=== PATIENT | male | born 1980 | race African-American/Black ===

== ENCOUNTER 2019-10-14 20:15 | Inpatient (IN) | payer OTHER ==
[2019-10-14 22:22] VITALS: BMI 29.5
--- NOTE | 2019-10-14 23:31 | HP ---
CIWA Score Nausea/Vomitin Muscle Tremors: 3 Anxiety: 4-Mod. Anxious/Guarded Agitation: 3 Paroxysmal Sweats: 3 Orientation: 0-Oriented Tacttile Disturbances: 0-None Auditory Disturbances: 0-None Visual Disturbances: 0-None Headache: 0-None Present CIWA-Ar Total Score: 15 - Admission Criteria OASAS Guidelines: Admission for Medically Managed Detox: Requires at least one of the followin. CIWA greater than 12 2. Seizures within the past 24 hours 3. Delirium tremens within the past 24 hours 4. Hallucinations within the past 24 hours 5. Acute intervention needed for co occurring medical disorder 6. Acute intervention needed for co occurring psychiatric disorder 7. Severe withdrawal that cannot be handled at a lower level of care (continued vomiting, continued diarrhea, abnormal vital signs) requiring intravenous medication and/or fluids 8. Admitting History and Physical - Smoking History Smoking history: Current every day smoker Have you smoked in the past 12 months: Yes Aproximately how many cigarettes per day: 10 - Alcohol/Substance Use Hx Alcohol Use: Yes Admission ROS [facility] Chief Complaint: Alcohol withdrawal symptoms Allergies/Adverse Reactions: Allergies Allergy/AdvReac Type Severity Reaction Status Date / Time Pork/Porcine Containing AdvReac Severe Vomiting Verified 10/14/19 22:15 Products NKDA Allergy Uncoded 10/14/19 22:15 History of Present Illness: 39 years old male with a long history of alcohol dependence is seeking admission to detox. His last admission was for the period 01/11/2016 - 01/15/2016 and patient reports that [facility] and he started drinking as soon as he was released. He reports insignificant period of sobriety and that he drinks 4 pints of Candida daily. He denies medical history, psych. history and suicidal ideation at this time. 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 Exam Limitations: No Limitations - Ebola screening Have you traveled outside of the country in the last 21 days: No Have you had contact with anyone from an Ebola affected area: No Have you been sick,other than usual withdrawal symptoms: No Do you have a fever: No - Review of Systems Constitutional: Chills, Malaise, Night Sweats EENT: reports: No Symptoms Reported Respiratory: reports: No Symptoms reported Cardiac: reports: No Symptoms Reported GI: reports: Nausea, Poor Fluid Intake, Abdominal cramping : reports: No Symptoms Reported Musculoskeletal: reports: No Symptoms Reported Neuro: reports: Tremors Endocrine: reports: No Symptoms Reported Hematology: reports: No Symptoms Reported Psychiatric: reports: Mood/Affect Appropiate, Orientated x3 Other Systems: Reviewed and Negative Patient History - Patient Medical History Hx Anemia: No Hx Asthma: No Hx Chronic Obstructive Pulmonary Disease (COPD): No Hx Cancer: No Hx Cardiac Disorders: No Hx Congestive Heart Failure: No Hx Hypertension: No Hx Hypercholesterolemia: No Hx Pacemaker: No HX Cerebrovascular Accident: No Hx Seizures: No Hx Dementia: No Hx Diabetes: No Hx Gastrointestinal Disorders: No Hx Liver Disease: No Hx Genitourinary Disorders: No Hx Sexually Transmitted Disorders: No Hx Renal Disease (ESRD): No Hx Thyroid Disease: No Hx Human Immunodeficiency Virus (HIV): No (Negative 2018) Hx Hepatitis C: No Hx Depression: No Hx Suicide Attempt: No (Denies suicidal ideation at this time.) Hx Bipolar Disorder: No Hx Schizophrenia: No - Patient Surgical History Past Surgical History: No Hx Neurologic Surgery: No Hx Cataract Extraction: No Hx Cardiac Surgery: No Hx Lung Surgery: No Hx Breast Biopsy: No Hx Abdominal Surgery: No Hx Appendectomy: No Hx Cholecystectomy: No Hx Genitourinary Surgery: No Hx Orthopedic Surgery: No Other Surgical History: sutured wound, head, 12/15/2015/sutures removed 12/26/2015 Anesthesia Reaction: No - PPD History Previous Implant?: Yes Documented Results: Negative w/proof Implanted On Prior [facility] Admission?: Yes Date: 10/14/15 Results: 0 mm PPD to be Administered?: Yes - Reproductive History Patient is a Female of Child Bearing Age (11 -55 yrs old): No (male) - Smoking Cessation Smoking history: Current every day smoker Have you smoked in the past 12 months: Yes Aproximately how many cigarettes per day: 10 Hx Chewing Tobacco Use: No Initiated information on smoking cessation: Yes 'Breaking Loose' booklet given: 10/14/19 - Substance & Tx. History Hx Alcohol Use: Yes Hx Substance Use: Yes Substance Use Type: Alcohol, Marijuana Hx Substance Use Treatment: Yes ([facility]) - Substances abused Alcohol Substance route: Oral Frequency: Daily Amount used: LIQUOR (CANDIDA) - 4 PINTS Age of first use: 19 Date of last use: 10/14/19 Marijuana/Hashish Substance route: Smoking Frequency: Daily Amount used: 4 BLUNTS DAILY Age of first use: 11 Date of last use: 10/14/19 Admission Physical Exam [facility] - Vital Signs Vital Signs: Vital Signs - 24 hr 10/14/19 22:16 Temperature 97.6 F Pulse Rate 83 Respiratory 12 Rate Blood Pressure 110/70 - Physical General Appearance: Yes: Moderate Distress, Tremorous, Anxious HEENTM: Yes: Within Normal Limits Respiratory: Yes: Lungs Clear, Normal Breath Sounds, No Respiratory Distress Neck: Yes: Within Normal Limits Breast: Yes: Breast Exam Deferred Abdominal: Yes: Normal Bowel Sounds, Soft Genitourinary: Yes: Within Normal Limits Back: Yes: Normal Inspection Musculoskeletal: Yes: Within Normal Limits Extremities: Yes: Tremors Neurological: Yes: Within Normal Limits, Alert, Normal Mood/Affect Integumentary: Yes: Warm Lymphatic: Yes: Within Normal Limits - Diagnostic (1) Alcohol dependence with uncomplicated withdrawal Current Visit: Yes Status: Acute (2) Marijuana dependence Status: Chronic (3) Nicotine dependence Current Visit: Yes Status: Chronic Qualifiers: Nicotine product type: cigarettes Substance use status: uncomplicated Qualified Code(s): F17.210 - Nicotine dependence, cigarettes, uncomplicated Cleared for Admission [facility] - Detox or Rehab [facility] Level of Care: Medically Managed Detox Regimen/Protocol: Librium Claeared for Rehab Admission: No Breathalyzer - Breathalyzer Breathalyzer: 0.231 Urine Drug Screen - Test Device Lot number: [id number] Expiration date: 09/27/21 - Results Drug screen NEGATIVE: No Urine drug screen results: THC-Marijuana Inpatient Rehab Admission - Rehab Decision to Admit Inpatient rehab admission?: No
[2019-10-14] MEDS ORDERED: MENTHOL/PHENOL 1 EACH UD MM PRN (23:41)
[2019-10-14] MEDS ORDERED: BISMUTH SUBSALICYLATE 524 MG/30 ML UD PO PRN (23:41)
[2019-10-14] MEDS ORDERED: hydrOXYzine PAMOATE 25 MG CAPSULE (FP) PO PRN (23:41)
[2019-10-14] MEDS ORDERED: chlordiazePOXIDE HCL 25 MG CAPSULE PO PRN (23:41)
[2019-10-14] MEDS ORDERED: MAG HYDROX/AL HYDROX/SIMETH 30 ML UNIT-DOSE CUP PO PRN (23:41)
[2019-10-14] MEDS ORDERED: METHOCARBAMOL 500 MG TABLET PO PRN (23:41)
[2019-10-14] MEDS ORDERED: MAGNESIUM HYDROX 2400MG/30ML ORAL SUSPENSION 30 ML CUP PO PRN (23:41)
[2019-10-14] MEDS ORDERED: MAGNESIUM CITRATE 300 ML BOTTLE PO PRN (23:41)
[2019-10-14] MEDS ORDERED: IBUPROFEN 400 MG TABLET (FP) PO PRN (23:41)
[2019-10-14] MEDS ORDERED: NICOTINE POLACRILEX 2 MG GUM BUC PRN (23:41)
[2019-10-14] MEDS ORDERED: ACETAMINOPHEN 325 MG TABLET (FP) PO PRN ×2 (23:41)
[2019-10-14] MEDS ORDERED: ONDANSETRON *ODT* 4 MG TABLET SL ONE (23:50)
[2019-10-15] MEDS: chlordiazePOXIDE HCL 25 MG CAPSULE PO SCH ×3 (00:49→10:44)
[2019-10-15 06:53] VITALS: TEMP 97.3
[2019-10-15] MEDS ORDERED: PRENATAL VITAMINS W/ FOLIC ACID TABLET (FP) PO SCH (10:00)
[2019-10-15] MEDS ORDERED: NICOTINE 14 MG/24 HOURS TOPICAL PATCH TD SCH (10:00)
[2019-10-15 10:05] VITALS: BP 130/74; PULSE 76
[2019-10-15 10:24] LABS: HEMATOCRIT 36.7 % (35.4-49); HEMOGLOBIN 13.1 GM/dL (11.7-16.9); MCH 34.1 pg (25.7-33.7); MCHC 35.7 g/dl (32.0-35.9); MEAN CELL VOLUME 95.5 fl (80-96); MEAN PLT VOLUME 7.3 fl (7.5-11.1); PLATELET COUNT 235 K/MM3 (134-434); RBC 3.84 M/mm3 (4.00-5.60); RDW 12.8 % (11.9-15.9); WHITE BLOOD COUNT 4.3 K/mm3 (4.0-10.0)
[2019-10-15 10:26] LABS: ALBUMIN 3.9 g/dl (3.4-5.0); BILIRUBIN,TOTAL 0.6 mg/dL (0.2-1); BLOOD UREA NITROGEN 7.8 mg/dL (7-18); CALCIUM 8.6 mg/dL (8.5-10.1); CREATININE 0.8 mg/dL (0.55-1.3); TOT PROT 7.6 g/dl (6.4-8.2)
--- NOTE | 2019-10-15 10:37 | EKG ---
Test Reason : Blood Pressure : / mmHG Vent. Rate : 077 BPM Atrial Rate : 077 BPM P-R Int : 188 ms QRS Dur : 106 ms QT Int : 380 ms P-R-T Axes : 078 069 015 degrees QTc Int : 430 ms NORMAL SINUS RHYTHM NONSPECIFIC INTRAVENTRICULAR CONDUCTION DEFECT NO PREVIOUS ECGS AVAILABLE Confirmed by JOSUE GIBSON MD ([id number]) on 10/15/2019 10:37:08 AM Referred By: Naveen Lay Confirmed By:JOSUE GIBSON MD
--- NOTE | 2019-10-15 11:25 | PN ---
S CIWA - CIWA Score Nausea/Vomitin-No Nausea/No Vomiting Muscle Tremors: 2 Anxiety: 3 Agitation: 0-Normal Activity Paroxysmal Sweats: 3 Orientation: 0-Oriented Tacttile Disturbances: 0-None Auditory Disturbances: 0-None Visual Disturbances: 0-None Headache: 2-Mild CIWA-Ar Total Score: 10 [facility] Progress Note (SOAP) Subjective: c/o sweats, anxiety, shakes, and headache. Objective: 10/15/19 11:24 Vital Signs 10/15/19 10/15/19 06:51 09:04 Temperature 97.3 F L 97.3 F L Pulse Rate 75 76 Respiratory 18 20 Rate Blood Pressure 106/64 130/74 O2 Sat by Pulse 96 Oximetry (%) Laboratory Last Values WBC 4.3 K/mm3 (4.0-10.0) 10/15/19 07:50 RBC 3.84 M/mm3 (4.00-5.60) L 10/15/19 07:50 Hgb 13.1 GM/dL (11.7-16.9) 10/15/19 07:50 Hct 36.7 % (35.4-49) 10/15/19 07:50 MCV 95.5 fl (80-96) 10/15/19 07:50 MCH 34.1 pg (25.7-33.7) H 10/15/19 07:50 MCHC 35.7 g/dl (32.0-35.9) 10/15/19 07:50 RDW 12.8 % (11.9-15.9) 10/15/19 07:50 Plt Count 235 K/MM3 (134-434) 10/15/19 07:50 MPV 7.3 fl (7.5-11.1) L 10/15/19 07:50 Sodium 142 mmol/L (136-145) 10/15/19 07:50 Potassium 4.0 mmol/L (3.5-5.1) 10/15/19 07:50 Chloride 106 mmol/L (98-107) 10/15/19 07:50 Carbon Dioxide 25 mmol/L (21-32) 10/15/19 07:50 Anion Gap 10 MMOL/L (8-16) 10/15/19 07:50 BUN 7.8 mg/dL (7-18) 10/15/19 07:50 Creatinine 0.8 mg/dL (0.55-1.3) 10/15/19 07:50 Est GFR (CKD-EPI)AfAm 129.51 10/15/19 07:50 Est GFR (CKD-EPI)NonAf 111.74 10/15/19 07:50 Random Glucose 74 mg/dL (74-106) 10/15/19 07:50 Calcium 8.6 mg/dL (8.5-10.1) 10/15/19 07:50 Total Bilirubin 0.6 mg/dL (0.2-1) 10/15/19 07:50 AST 60 U/L (15-37) H 10/15/19 07:50 ALT 35 U/L (13-61) 10/15/19 07:50 Alkaline Phosphatase 76 U/L (45-117) 10/15/19 07:50 Total Protein 7.6 g/dl (6.4-8.2) 10/15/19 07:50 Albumin 3.9 g/dl (3.4-5.0) 10/15/19 07:50 Syphilis Serology Non-reactive (NONREACTIVE) 10/15/19 07:50 Labs noted. Assessment: 10/15/19 11:24 AOX3, in no acute respiratory distress. Full ROM, ambulating in the unit. Withdrawal symptoms. Plan: continue detox.
--- NOTE | 2019-10-15 12:46 | DS ---
[facility] Detox Discharge Summary Admission Date: 10/14/19 Discharge Date: 10/15/19 (Pt left AMA) - History Present History: Alcohol Dependence, Cannabis Dependence Additional Comments: As per H&P: "39 years old male with a long history of alcohol dependence is seeking admission to detox. His last admission was for the period 01/11/2016 - 01/15/2016 and patient reports that [facility] and he started drinking as soon as he was released. He reports insignificant period of sobriety and that he drinks 4 pints of Candida daily. He denies medical history, psych. history and suicidal ideation at this time. 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 Pt left AMA. Pt did not complete the detox protocol. Pt states, my daughter is admitted to the hospital, i have to go". An attempt to let pt stay and complete the detox protocol failed. Pt is encouraged to follow-up with an outpatient CD program and also to follow-up with his pmd which he verbalized understanding. Pt is AOX3, in no acute respiratory distress, Full ROM, and ambulatory. Pertinent Past History: h/o alcohol and cannabis use disorder. - Physical Exam Results Vital Signs: Vital Signs Temperature 97.3 F L 10/15/19 09:04 Pulse Rate 76 10/15/19 09:04 Respiratory Rate 20 10/15/19 09:04 Blood Pressure 130/74 10/15/19 09:04 O2 Sat by Pulse Oximetry (%) 96 10/15/19 06:51 Vital Signs 10/15/19 10/15/19 06:51 09:04 Temperature 97.3 F L 97.3 F L Pulse Rate 75 76 Respiratory 18 20 Rate Blood Pressure 106/64 130/74 O2 Sat by Pulse 96 Oximetry (%) Laboratory Last Values WBC 4.3 K/mm3 (4.0-10.0) 10/15/19 07:50 RBC 3.84 M/mm3 (4.00-5.60) L 10/15/19 07:50 Hgb 13.1 GM/dL (11.7-16.9) 10/15/19 07:50 Hct 36.7 % (35.4-49) 10/15/19 07:50 MCV 95.5 fl (80-96) 10/15/19 07:50 MCH 34.1 pg (25.7-33.7) H 10/15/19 07:50 MCHC 35.7 g/dl (32.0-35.9) 10/15/19 07:50 RDW 12.8 % (11.9-15.9) 10/15/19 07:50 Plt Count 235 K/MM3 (134-434) 10/15/19 07:50 MPV 7.3 fl (7.5-11.1) L 10/15/19 07:50 Sodium 142 mmol/L (136-145) 10/15/19 07:50 Potassium 4.0 mmol/L (3.5-5.1) 10/15/19 07:50 Chloride 106 mmol/L (98-107) 10/15/19 07:50 Carbon Dioxide 25 mmol/L (21-32) 10/15/19 07:50 Anion Gap 10 MMOL/L (8-16) 10/15/19 07:50 BUN 7.8 mg/dL (7-18) 10/15/19 07:50 Creatinine 0.8 mg/dL (0.55-1.3) 10/15/19 07:50 Est GFR (CKD-EPI)AfAm 129.51 10/15/19 07:50 Est GFR (CKD-EPI)NonAf 111.74 10/15/19 07:50 Random Glucose 74 mg/dL (74-106) 10/15/19 07:50 Calcium 8.6 mg/dL (8.5-10.1) 10/15/19 07:50 Total Bilirubin 0.6 mg/dL (0.2-1) 10/15/19 07:50 AST 60 U/L (15-37) H 10/15/19 07:50 ALT 35 U/L (13-61) 10/15/19 07:50 Alkaline Phosphatase 76 U/L (45-117) 10/15/19 07:50 Total Protein 7.6 g/dl (6.4-8.2) 10/15/19 07:50 Albumin 3.9 g/dl (3.4-5.0) 10/15/19 07:50 Syphilis Serology Non-reactive (NONREACTIVE) 10/15/19 07:50 Labs noted. Pertinent Admission Physical Exam Findings: withdrawal symptoms. - Treatment Hospital Course: Detox Protocol Followed - Medication Discharge Medications: Ambulatory Orders NK [No Known Home Medication] 11/04/15 - Diagnosis (1) Alcohol dependence with uncomplicated withdrawal Current Visit: Yes Status: Acute (2) Nicotine dependence Current Visit: Yes Status: Chronic Qualifiers: Nicotine product type: cigarettes Substance use status: uncomplicated Qualified Code(s): F17.210 - Nicotine dependence, cigarettes, uncomplicated (3) Marijuana dependence Current Visit: No Status: Chronic - AMA Did Patient Leave Against Medical Advice: Yes
[2019-10-15] MEDS ORDERED: THIAMINE HCL 100 MG TABLET (FP) PO SCH (22:00)
[2019-10-15] MEDS ORDERED: MELATONIN 5 MG TABLETS PO SCH (22:00)
[2019-10-16] MEDS ORDERED: chlordiazePOXIDE HCL 25 MG CAPSULE PO SCH (05:00)
[2019-10-17] MEDS ORDERED: chlordiazePOXIDE HCL 10 MG CAPSULE PO PRN
[2019-10-17] MEDS ORDERED: chlordiazePOXIDE HCL 10 MG CAPSULE PO SCH (05:00)
[2019-10-18] MEDS ORDERED: chlordiazePOXIDE HCL 10 MG CAPSULE PO SCH (05:00)
[2019-10-19] MEDS ORDERED: chlordiazePOXIDE HCL 10 MG CAPSULE PO ONE (05:00)
--- NOTE | 2019-10-19 21:17 | HP ---
CIWA Score Nausea/Vomitin-No Nausea/No Vomiting Muscle Tremors: 2 Anxiety: 3 Agitation: 0-Normal Activity Paroxysmal Sweats: 3 Orientation: 0-Oriented Tacttile Disturbances: 0-None Auditory Disturbances: 0-None Visual Disturbances: 0-None Headache: 2-Mild CIWA-Ar Total Score: 10 - Admission Criteria OASAS Guidelines: Admission for Medically Managed Detox: Requires at least one of the followin. CIWA greater than 12 2. Seizures within the past 24 hours 3. Delirium tremens within the past 24 hours 4. Hallucinations within the past 24 hours 5. Acute intervention needed for co occurring medical disorder 6. Acute intervention needed for co occurring psychiatric disorder 7. Severe withdrawal that cannot be handled at a lower level of care (continued vomiting, continued diarrhea, abnormal vital signs) requiring intravenous medication and/or fluids 8. Admitting History and Physical - Smoking History Smoking history: Current every day smoker Have you smoked in the past 12 months: Yes Aproximately how many cigarettes per day: 10 - Alcohol/Substance Use Hx Alcohol Use: Yes Admission [facility] Allergies/Adverse Reactions: Allergies Allergy/AdvReac Type Severity Reaction Status Date / Time Pork/Porcine Containing AdvReac Severe Vomiting Verified 10/14/19 22:15 Products NKDA Allergy Uncoded 10/14/19 22:15 History of Present Illness: 39 years old male with a long history of alcohol dependence is seeking admission to detox. His last admission was for the period 01/11/2016 - 01/15/2016 and patient reports that he went to assisted post detox and he started drinking as soon as he was released. He reports insignificant period of sobriety and that he drinks 4 pints of Candida daily. He denies medical history, psych. history and suicidal ideation at this time. 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 - Ebola screening Have you traveled outside of the country in the last 21 days: No Have you had contact with anyone from an Ebola affected area: No Have you been sick,other than usual withdrawal symptoms: No Do you have a fever: No Patient History - Patient Medical History Hx Anemia: No Hx Asthma: No Hx Chronic Obstructive Pulmonary Disease (COPD): No Hx Cancer: No Hx Cardiac Disorders: No Hx Congestive Heart Failure: No Hx Hypertension: No Hx Hypercholesterolemia: No Hx Pacemaker: No HX Cerebrovascular Accident: No Hx Seizures: No Hx Dementia: No Hx Diabetes: No Hx Gastrointestinal Disorders: No Hx Liver Disease: No Hx Genitourinary Disorders: No Hx Sexually Transmitted Disorders: No Hx Renal Disease (ESRD): No Hx Thyroid Disease: No Hx Human Immunodeficiency Virus (HIV): No (Negative 2017) Hx Hepatitis C: No Hx Depression: No Hx Suicide Attempt: No (Denies suicidal ideation at this time.) Hx Bipolar Disorder: No Hx Schizophrenia: No - Patient Surgical History Past Surgical History: No Hx Neurologic Surgery: No Hx Cataract Extraction: No Hx Cardiac Surgery: No Hx Lung Surgery: No Hx Breast Surgery: No Hx Breast Biopsy: No Hx Abdominal Surgery: No Hx Appendectomy: No Hx Cholecystectomy: No Hx Genitourinary Surgery: No Hx Section: No Hx Orthopedic Surgery: No Other Surgical History: sutured wound, head, 12/15/2015/sutures removed 12/26/2015 Anesthesia Reaction: No - PPD History Previous Implant?: Yes Documented Results: Negative w/proof Implanted On Prior [facility] Admission?: Yes Date: 10/17/15 Results: 0 mm - Smoking Cessation Smoking history: Current every day smoker Have you smoked in the past 12 months: Yes Aproximately how many cigarettes per day: 10 Cigars Per Day: 0 Hx Chewing Tobacco Use: No Initiated information on smoking cessation: Yes - Substances abused Alcohol Substance route: Oral Frequency: Daily Amount used: LIQUOR (CANDIDA) - 4 PINTS Age of first use: 19 Date of last use: 10/14/19 Marijuana/Hashish Substance route: Smoking Frequency: Daily Amount used: 4 BLUNTS DAILY Age of first use: 11 Date of last use: 10/14/19 Admission Physical Exam [facility] - Diagnostic (1) Alcohol dependence with uncomplicated withdrawal Status: Acute (2) Marijuana dependence Status: Chronic (3) Nicotine dependence Status: Chronic Qualifiers: Nicotine product type: cigarettes Substance use status: uncomplicated Qualified Code(s): F17.210 - Nicotine dependence, cigarettes, uncomplicated Breathalyzer - Breathalyzer Breathalyzer: 0.231 Urine Drug Screen - Test Device Lot number: [id number] Expiration date: 09/27/21 - Results Drug screen NEGATIVE: No Urine drug screen results: THC-Marijuana
== END 2019-10-15 13:18 | disposition left against medical advice (07) | DRG 770 ==
LOC: YASAS 20:15 → Y3N 22:37
PROVIDERS: ADMIT Allergy & Immunology; ATTEND Allergy & Immunology
PROC: HZ2ZZZZ Detoxification Services for Substance Abuse Treatment (ICD-10-PCS; principal; 2019-10-14)
DX: F10.230 Alcohol dependence with withdrawal, uncomplicated (principal); F12.20 Cannabis dependence, uncomplicated; F17.210 Nicotine dependence, cigarettes, uncomplicated; Z91.018 Allergy to other foods
CPT/HCPCS: 36415; 80053; 85027; 86780; 93005; 93010; Q0162; U0003

== ENCOUNTER 2019-11-21 17:14 | Inpatient (IN) | payer OTHER ==
--- NOTE | 2019-11-21 17:35 | BHS.RME ---
Substance Use & Tx History - Substance Use History Alcohol Substance amount: 1 litre of don/6 packs of 12 ozs of beer Frequency of use: Daily Substance route: Oral Date of Last Use: 11/21/19 Marijuana/Hashish Substance amount: 100$ of marijuana Frequency of use: Daily Substance route: Smoking Date of Last Use: 11/21/19 - Last Treatment Date of last treatment: [facility] 10/19/19 to 10/22/19 Where was last treatment: Detox Physical/Psych/Mental Status - Behavior Eye Contact: Normal - Cooperativeness Cooperativeness: Cooperative - Thinking Thought Processes: Logical Thought content: Future oriented - Physical Health Problems Is patient presently having any pain?: No Does patient presently have any injuries (include location): No Does patient currently have a fever: No CIWA Nausea/Vomitin Muscle Tremors: 2 Anxiety: 3 Agitation: 3 Paroxysmal Sweats: 1-Minimal Palms Moist Orientation: 0-Oriented Tacttile Disturbances: 1-Very Mild Itch/Numbness Auditory Disturbances: 0-None Visual Disturbances: 0-None Headache: 2-Mild CIWA-Ar Total Score: 15
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
[2019-11-21] MEDS ORDERED: IBUPROFEN 400 MG TABLET (FP) PO PRN (17:57)
[2019-11-21] MEDS ORDERED: chlordiazePOXIDE HCL 25 MG CAPSULE PO PRN (17:57)
[2019-11-21] MEDS ORDERED: BISMUTH SUBSALICYLATE 524 MG/30 ML UD PO PRN (17:57)
[2019-11-21] MEDS ORDERED: NICOTINE POLACRILEX 2 MG GUM BUC PRN (17:57)
[2019-11-21] MEDS ORDERED: METHOCARBAMOL 500 MG TABLET PO PRN (17:57)
[2019-11-21] MEDS ORDERED: MAGNESIUM HYDROX 2400MG/30ML ORAL SUSPENSION 30 ML CUP PO PRN (17:57)
[2019-11-21] MEDS ORDERED: ACETAMINOPHEN 325 MG TABLET (FP) PO PRN ×2 (17:57)
[2019-11-21] MEDS ORDERED: ONDANSETRON *ODT* 4 MG TABLET SL PRN (17:57)
[2019-11-21] MEDS ORDERED: MENTHOL/PHENOL 1 EACH UD MM PRN (17:57)
[2019-11-21] MEDS ORDERED: MAG HYDROX/AL HYDROX/SIMETH 30 ML UNIT-DOSE CUP PO PRN (17:57)
[2019-11-21] MEDS ORDERED: MAGNESIUM CITRATE 300 ML BOTTLE PO PRN (17:57)
[2019-11-21 18:01] VITALS: BMI 31.4
[2019-11-21] MEDS: hydrOXYzine PAMOATE 25 MG CAPSULE (FP) PO SCH ×2 (18:55→22:34)
[2019-11-21] MEDS: NICOTINE 21 MG/24 HOURS TOPICAL PATCH TD SCH (18:56)
[2019-11-21] MEDS ORDERED: MELATONIN 5 MG TABLETS PO SCH (22:00)
[2019-11-21] MEDS ORDERED: THIAMINE HCL 100 MG TABLET (FP) PO SCH (22:00)
[2019-11-21] MEDS: chlordiazePOXIDE HCL 25 MG CAPSULE PO SCH (23:51)
[2019-11-22] MEDS: chlordiazePOXIDE HCL 25 MG CAPSULE PO SCH ×2 (05:26→10:25)
[2019-11-22] MEDS: hydrOXYzine PAMOATE 25 MG CAPSULE (FP) PO SCH ×2 (05:26→10:25)
[2019-11-22 09:02] VITALS: BP 125/83; PULSE 73; TEMP 97.4
[2019-11-22] MEDS ORDERED: PRENATAL VITAMINS W/ FOLIC ACID TABLET (FP) PO SCH (10:00)
[2019-11-22 10:19] LABS: HEMATOCRIT 37.3 % (35.4-49); MCH 32.9 pg (25.7-33.7); MCHC 34.9 g/dl (32.0-35.9); MEAN CELL VOLUME 94.4 fl (80-96); MEAN PLT VOLUME 7.4 fl (7.5-11.1); PLATELET COUNT 273 K/MM3 (134-434); RBC 3.95 M/mm3 (4.00-5.60); RDW 12.5 % (11.9-15.9)
[2019-11-22] MEDS: NICOTINE 21 MG/24 HOURS TOPICAL PATCH TD SCH (10:25)
[2019-11-22 10:30] LABS: ALBUMIN 3.7 g/dl (3.4-5.0); BILIRUBIN,TOTAL 0.4 mg/dL (0.2-1); BLOOD UREA NITROGEN 10.6 mg/dL (7-18); CREATININE 0.8 mg/dL (0.55-1.3); POTASSIUM 4.5 mmol/L (3.5-5.1); TOT PROT 7.3 g/dl (6.4-8.2)
--- NOTE | 2019-11-22 11:38 | DS ---
[facility] Detox Discharge Summary Admission Date: 11/21/19 Discharge Date: 11/22/19 - History Present History: Alcohol Dependence Additional Comments: 39 years old male was admitted on 11/21/19 for alcohol withdrawal sx management treated with librium detox regiment mr guevara insists to leave the detox today that he needs to go back to work around 1 pm mr guevara prefers to go to [facility] for out patient services for his alcohol abuse treatment mr guevara is alert oriented x 3 speech clearly coherently ambulating with steady gaits General Appearance: Yes: mild Distress, mild Tremorous, not Irritable, mild Anxious HEENTM: Yes: NORMAN, Pharynx Normal Respiratory: Yes: Lungs Clear, Normal Breath Sounds, No Respiratory Distress Neck: Yes: Within Normal Limits, Supple, Trachea in good position Breast: Yes: Within Normal Limits Cardiology: Yes: Within Normal Limits, Regular Rhythm, Regular Rate, S1, S2 Abdominal: Yes: Normal Bowel Sounds, Non Tender, Soft Genitourinary: Yes: Within Normal Limits Back: Yes: Muscle Spasm Musculoskeletal: Yes: Gait Steady, Back pain Extremities: Yes: Tremors Neurological: Yes: cath laboratory technician II-XII NML intact, Alert, Motor Strength 5/5 Integumentary: Yes: Dry Lymphatic: Yes: Within Normal Limits Pertinent Past History: time for discharge 56 minutes treatment team met with mr guevara to discuss the benefit of librium regiment completion mr guevara insists to leave the detox return to work today around 1 pm mr guevara states that he lives in [place] and prefers to go to [facility] but his friend wants him to come to detox - Physical Exam Results Vital Signs: Vital Signs Temperature 97.4 F L 11/22/19 09:01 Pulse Rate 73 11/22/19 09:01 Respiratory Rate 18 11/22/19 09:01 Blood Pressure 125/83 11/22/19 09:01 O2 Sat by Pulse Oximetry (%) 99 11/22/19 09:01 Pertinent Admission Physical Exam Findings: alcohol withdrawal Vital Signs - 24 hr 11/21/19 11/21/19 11/21/19 17:58 18:21 18:58 Temperature 97.0 F L 97.5 F L Pulse Rate 98 H 87 Respiratory 19 17 Rate Blood Pressure 139/95 125/79 O2 Sat by Pulse 98 Oximetry (%) 11/21/19 11/22/19 11/22/19 20:20 06:15 09:01 Temperature 97.6 F 98.1 F 97.4 F L Pulse Rate 60 84 73 Respiratory 17 18 18 Rate Blood Pressure 123/75 146/92 125/83 O2 Sat by Pulse 100 99 99 Oximetry (%) Laboratory Tests 11/22/19 11/22/19 07:10 07:10 WBC 5.0 RBC 3.95 L Hgb 13.0 Hct 37.3 MCV 94.4 MCH 32.9 MCHC 34.9 RDW 12.5 Plt Count 273 D MPV 7.4 L Sodium 140 Potassium 4.5 Chloride 106 Carbon Dioxide 27 Anion Gap 7 L BUN 10.6 Creatinine 0.8 Est GFR (CKD-EPI)AfAm 129.51 Est GFR (CKD-EPI)NonAf 111.74 Random Glucose 88 Calcium 9.0 Total Bilirubin 0.4 AST 38 H ALT 28 Alkaline Phosphatase 81 Total Protein 7.3 Albumin 3.7 covid pending - Treatment Hospital Course: Detox Protocol Followed, Detoxed Safely, Responded well, Discharged Condition Good, Rehab Referral Accepted Patient has Accepted a Rehab Referral to[facility] - Medication Discharge Medications: Ambulatory Orders NK [No Known Home Medication] 11/04/15 - Diagnosis (1) Substance induced mood disorder Current Visit: Yes Status: Suspected (2) Alcohol dependence with uncomplicated withdrawal Current Visit: Yes Status: Acute (3) Nicotine dependence Current Visit: Yes Status: Acute Qualifiers: Nicotine product type: cigarettes Substance use status: in withdrawal Qualified Code(s): F17.213 - Nicotine dependence, cigarettes, with withdrawal - AMA Did Patient Leave Against Medical Advice: Yes CIWA Score - CIWA Score Nausea/Vomitin-Mild Nausea/No Vomiting Muscle Tremors: 1-None Visible, but [place] Anxiety: 2 Agitation: 2 Paroxysmal Sweats: 1-Minimal Palms Moist Orientation: 0-Oriented Tacttile Disturbances: 1-Very Mild Itch/Numbness Auditory Disturbances: 0-None Visual Disturbances: 0-None Headache: 2-Mild CIWA-Ar Total Score: 10
[2019-11-23] MEDS ORDERED: chlordiazePOXIDE HCL 25 MG CAPSULE PO SCH (05:00)
[2019-11-24] MEDS ORDERED: chlordiazePOXIDE HCL 10 MG CAPSULE PO PRN
[2019-11-24] MEDS ORDERED: chlordiazePOXIDE HCL 10 MG CAPSULE PO SCH (05:00)
[2019-11-25] MEDS ORDERED: chlordiazePOXIDE HCL 10 MG CAPSULE PO SCH (05:00)
[2019-11-26] MEDS ORDERED: chlordiazePOXIDE HCL 10 MG CAPSULE PO ONE (05:00)
== END 2019-11-22 11:26 | disposition home or self-care (01) | DRG 775 ==
LOC: YASAS 17:14 → Y3N 18:05
PROVIDERS: ADMIT Allergy & Immunology; ATTEND Allergy & Immunology
PROC: HZ2ZZZZ Detoxification Services for Substance Abuse Treatment (ICD-10-PCS; principal; 2019-11-21)
DX: F10.230 Alcohol dependence with withdrawal, uncomplicated (principal); F10.220 Alcohol dependence with intoxication, uncomplicated; F12.20 Cannabis dependence, uncomplicated; F17.213 Nicotine dependence, cigarettes, with withdrawal; F19.24 Other psychoactive substance dependence with psychoactive substance-induced mood disorder; Z91.018 Allergy to other foods
CPT/HCPCS: 36415; 80053; 85027; 86780; U0003

== ENCOUNTER 2020-10-04 19:45 | Emergency (ER) | payer OTHER ==
[~2020-10-04 19:45] MED LIST: LIDOCAINE PATCH REMOVAL MC ONE
[2020-10-04 20:15] VITALS: BMI 30.4
[2020-10-04 20:16] VITALS: TEMP 98.2
[2020-10-04] MEDS ORDERED: ACETAMINOPHEN 1000 MG/100 ML VIAL (NON FORMULARY) IVPB ONE (21:43)
[2020-10-04] MEDS ORDERED: ACETAMINOPHEN INJECTION 100 ML IVPB ONE (21:53)
[2020-10-04 22:25] LABS: BASO % 1.3 % (0-2.0); EOS % 3.6 % (0-4.5); HEMATOCRIT 32.5 % (35.4-49); HEMOGLOBIN 11.6 GM/dL (11.7-16.9); LYMPH % 40.9 % (8-40); MCH 34.6 pg (25.7-33.7); MCHC 35.7 g/dl (32.0-35.9); MEAN PLT VOLUME 6.4 fl (7.5-11.1); MONO % 9.5 % (3.8-10.2); NEUT % 44.7 % (42.8-82.8); PLATELET COUNT 329 10^3/uL (134-434); RBC 3.35 M/mm3 (4.00-5.60); WHITE BLOOD COUNT 5.3 K/mm3 (4.0-10.0)
[2020-10-04] MEDS ORDERED: LIDOCAINE 5% TOPICAL PATCH TP ONE (22:29)
[2020-10-04] MEDS ORDERED: LIDOCAINE 5% TOPICAL PATCH ONE (22:34)
[2020-10-04 22:45] LABS: ALBUMIN 3.7 g/dl (3.4-5.0); BLOOD UREA NITROGEN 7.9 mg/dL (7-18); CALCIUM 8.4 mg/dL (8.5-10.1)
[2020-10-04 22:48] LABS: CREATININE 0.7 mg/dL (0.55-1.3)
[2020-10-04 22:50] LABS: BILIRUBIN,TOTAL 0.2 mg/dL (0.2-1)
[2020-10-05 01:42] VITALS: BP 116/82; PULSE 87
[2020-10-05] MEDS ORDERED: LIDOCAINE PATCH REMOVAL MC ONE (10:30)
== END 2020-10-05 01:43 | disposition home or self-care (01) ==
LOC: JER 19:45
PROC: 3E0333Z Introduction of Anti-inflammatory into Peripheral Vein, Percutaneous Approach (ICD-10-PCS; principal; 2020-10-04)
DX: S22.32XA Fracture of one rib, left side, initial encounter for closed fracture (principal); V03.10XA Pedestrian on foot injured in collision with car, pick-up truck or van in traffic accident, initial encounter; Y93.01 Activity, walking, marching and hiking
CPT/HCPCS: 71260-TC; 74177-TC; 80053; 85025; 86850; 86900; 86901; 93005; 93010; 99285-25; J0131; Q9967

== ENCOUNTER 2020-11-24 14:07 | Inpatient (IN) | payer OTHER ==
[2020-11-24 16:29] VITALS: BMI 30.3
[2020-11-24] MEDS ORDERED: ONDANSETRON *ODT* 4 MG TABLET SL PRN (17:34)
[2020-11-24] MEDS ORDERED: ACETAMINOPHEN 325 MG TABLET (FP) PO PRN ×2 (17:34)
[2020-11-24] MEDS ORDERED: BISMUTH SUBSALICYLATE 524 MG/30 ML PO PRN (17:34)
[2020-11-24] MEDS ORDERED: MENTHOL/PHENOL 1 EACH UD MM PRN (17:34)
[2020-11-24] MEDS ORDERED: IBUPROFEN 400 MG TABLET (FP) PO PRN (17:34)
[2020-11-24] MEDS ORDERED: NICOTINE 10 MG CARTRIDGE (INHALER) IH PRN (17:34)
[2020-11-24] MEDS ORDERED: METHOCARBAMOL 500 MG TABLET PO PRN (17:34)
[2020-11-24] MEDS ORDERED: MAG HYDROX/AL HYDROX/SIMETH 30 ML UNIT-DOSE CUP PO PRN (17:34)
[2020-11-24] MEDS ORDERED: MAGNESIUM HYDROX 2400MG/30ML ORAL SUSPENSION 30 ML CUP PO PRN (17:34)
[2020-11-24] MEDS ORDERED: MAGNESIUM CITRATE 300 ML BOTTLE PO PRN (17:34)
[2020-11-24] MEDS: hydrOXYzine PAMOATE 25 MG CAPSULE (FP) PO SCH ×2 (18:51→22:29)
[2020-11-24] MEDS: THIAMINE HCL 100 MG TABLET (FP) PO SCH (22:29)
[2020-11-24] MEDS: MELATONIN 5 MG TABLETS PO SCH (22:29)
[2020-11-25] MEDS: hydrOXYzine PAMOATE 25 MG CAPSULE (FP) PO SCH ×5 (05:54→22:09)
[2020-11-25 14:34] LABS: HEMATOCRIT 38.5 % (35.4-49); HEMOGLOBIN 13.6 GM/dL (11.7-16.9); MCH 34.2 pg (25.7-33.7); MCHC 35.3 g/dl (32.0-35.9); MEAN CELL VOLUME 97.1 fl (80-96); MEAN PLT VOLUME 6.9 fl (7.5-11.1); PLATELET COUNT 296 10^3/uL (134-434); RBC 3.96 M/mm3 (4.00-5.60); RDW 13.1 % (11.9-15.9); WHITE BLOOD COUNT 4.7 K/mm3 (4.0-10.0)
[2020-11-25] MEDS: THIAMINE HCL 100 MG TABLET (FP) PO SCH (22:09)
[2020-11-25] MEDS: MELATONIN 5 MG TABLETS PO SCH (22:09)
[2020-11-25 22:55] LABS: BLOOD UREA NITROGEN 4.4 mg/dL (7-18); CREATININE 0.9 mg/dL (0.55-1.3)
[2020-11-25 22:56] LABS: ALBUMIN 3.8 g/dl (3.4-5.0); BILIRUBIN,TOTAL 0.6 mg/dL (0.2-1); CALCIUM 9.4 mg/dL (8.5-10.1); TOT PROT 7.6 g/dl (6.4-8.2)
[2020-11-26] MEDS: hydrOXYzine PAMOATE 25 MG CAPSULE (FP) PO SCH (05:08)
[2020-11-26 09:20] VITALS: PULSE 81; TEMP 96.4
[2020-11-26 09:29] VITALS: BP 144/94
== END 2020-11-26 09:58 | disposition home or self-care (01) | DRG 775 ==
LOC: YASAS 14:07 → Y3N 18:04
PROVIDERS: ADMIT Allergy & Immunology; ATTEND Allergy & Immunology
PROC: HZ2ZZZZ Detoxification Services for Substance Abuse Treatment (ICD-10-PCS; principal; 2020-11-24)
DX: F10.230 Alcohol dependence with withdrawal, uncomplicated (principal); F12.20 Cannabis dependence, uncomplicated; F17.213 Nicotine dependence, cigarettes, with withdrawal
CPT/HCPCS: 36415; 80053; 85027; 86780; C9803; U0003; U0005

== ENCOUNTER 2021-06-26 14:13 | Inpatient (IN) | payer OTHER ==
[2021-06-26 15:33] VITALS: BMI 29.2
[2021-06-26] MEDS ORDERED: ACETAMINOPHEN 325 MG TABLET (FP) PO PRN ×2 (16:36)
[2021-06-26] MEDS ORDERED: LOPERAMIDE HCL 2 MG CAPSULE PO PRN (16:36)
[2021-06-26] MEDS ORDERED: IBUPROFEN 400 MG TABLET (FP) PO PRN (16:36)
[2021-06-26] MEDS ORDERED: NICOTINE 10 MG CARTRIDGE (INHALER) IH PRN (16:36)
[2021-06-26] MEDS ORDERED: ONDANSETRON *ODT* 4 MG TABLET SL PRN (16:36)
[2021-06-26] MEDS ORDERED: MAG HYDROX/AL HYDROX/SIMETH 30 ML UNIT-DOSE CUP PO PRN (16:36)
[2021-06-26] MEDS ORDERED: BISMUTH SUBSALICYLATE 524 MG/30 ML PO PRN (16:36)
[2021-06-26] MEDS ORDERED: DICYCLOMINE HCL 10 MG CAPSULE PO PRN (16:36)
[2021-06-26] MEDS ORDERED: diazePAM 5 MG TABLET PO PRN (16:36)
[2021-06-26] MEDS ORDERED: MAGNESIUM HYDROX 2400MG/30ML ORAL SUSPENSION 30 ML CUP PO PRN (16:36)
[2021-06-26] MEDS ORDERED: METHOCARBAMOL 500 MG TABLET PO PRN (16:36)
[2021-06-26] MEDS ORDERED: MAGNESIUM CITRATE 300 ML BOTTLE PO PRN (16:36)
[2021-06-26] MEDS ORDERED: BENZOCAINE/MENTHOL (CHLORASEPTIC ) LOZENGE MM PRN (16:36)
[2021-06-26] MEDS: diazePAM 5 MG TABLET PO SCH ×2 (17:44→22:56)
[2021-06-26] MEDS: hydrOXYzine PAMOATE 25 MG CAPSULE (FP) PO SCH ×2 (17:44→22:56)
[2021-06-26] MEDS: PRENATAL VITAMINS W/ FOLIC ACID TABLET (FP) PO SCH (17:45)
[2021-06-26] MEDS: MELATONIN 5 MG TABLETS PO SCH (22:56)
[2021-06-26] MEDS: THIAMINE HCL 100 MG TABLET (FP) PO SCH (22:56)
[2021-06-27] MEDS: diazePAM 5 MG TABLET PO SCH ×4 (05:19→22:05)
[2021-06-27] MEDS: hydrOXYzine PAMOATE 25 MG CAPSULE (FP) PO SCH ×5 (05:19→22:05)
[2021-06-27] MEDS ORDERED: NICOTINE 14 MG/24 HOURS TOPICAL PATCH TD SCH (10:00)
[2021-06-27] MEDS: PRENATAL VITAMINS W/ FOLIC ACID TABLET (FP) PO SCH (10:22)
[2021-06-27 13:55] LABS: HEMATOCRIT 37.6 % (35.4-49); HEMOGLOBIN 13.2 GM/dL (11.7-16.9); MCH 32.9 pg (25.7-33.7); MCHC 35.2 g/dl (32.0-35.9); MEAN CELL VOLUME 93.4 fl (80-96); MEAN PLT VOLUME 7.3 fl (7.5-11.1); PLATELET COUNT 216 10^3/uL (134-434); RBC 4.02 M/mm3 (4.00-5.60); RDW 13.1 % (11.9-15.9); WHITE BLOOD COUNT 4.1 K/mm3 (4.0-10.0)
[2021-06-27 14:08] LABS: SARS-CoV-2 NAA Not Detected (Not Detected)
[2021-06-27 14:40] LABS: ALBUMIN 3.7 g/dl (3.4-5.0); CALCIUM 9.2 mg/dL (8.5-10.1)
[2021-06-27 14:45] LABS: BILIRUBIN,TOTAL 0.8 mg/dL (0.2-1); TOT PROT 7.3 g/dl (6.4-8.2)
[2021-06-27 14:54] LABS: BLOOD UREA NITROGEN 4.9 mg/dL (7-18); CREATININE 0.8 mg/dL (0.55-1.3)
[2021-06-27] MEDS: MELATONIN 5 MG TABLETS PO SCH (22:05)
[2021-06-27] MEDS: THIAMINE HCL 100 MG TABLET (FP) PO SCH (22:05)
[2021-06-28] MEDS: hydrOXYzine PAMOATE 25 MG CAPSULE (FP) PO SCH (05:14)
[2021-06-28] MEDS ORDERED: diazePAM 5 MG TABLET PO SCH (06:00)
[2021-06-28 08:42] VITALS: BP 137/88; PULSE 76; TEMP 97.1
[2021-06-28 14:09] LABS: SARS-CoV-2 NAA Not Detected (Not Detected)
[2021-06-29] MEDS ORDERED: diazePAM 5 MG TABLET PO SCH (06:00)
[2021-06-30] MEDS ORDERED: diazePAM 5 MG TABLET PO ONE (06:00)
== END 2021-06-28 09:09 | disposition left against medical advice (07) | DRG 770 ==
LOC: YASAS 14:13 → Y3N 16:52
PROVIDERS: ADMIT Allergy & Immunology; ATTEND Allergy & Immunology
PROC: HZ2ZZZZ Detoxification Services for Substance Abuse Treatment (ICD-10-PCS; principal; 2021-06-26)
DX: F10.230 Alcohol dependence with withdrawal, uncomplicated (principal); F14.10 Cocaine abuse, uncomplicated; F12.20 Cannabis dependence, uncomplicated; F17.210 Nicotine dependence, cigarettes, uncomplicated; R74.8 Abnormal levels of other serum enzymes; Z28.310 Unvaccinated for COVID-19
CPT/HCPCS: 36415; 80053; 85027; 86780; C9803-CS; Q0162; U0003; U0005